=== PATIENT | female | born 1985 | race Caucasian/White ===

== ENCOUNTER 2018-06-22 07:00 | Day surgery (SDC) | payer OTHER ==
[~2018-06-22] VITALS: Ht 154.9 cm; Wt 75.5 kg
[2018-06-22] VITALS (18 sets, daily range): BP systolic 119–159; BP diastolic 68–94; PULSE 70–84; RESP 13–18; Ht 154.9 cm; Wt 75.5 kg
[~2018-06-22 07:00] MED LIST: DIPH25CA6; SEVOFLURANE 15 MIN ONE; SOD CHLORIDE 0.9% 1,000 ML IV SCH
[2018-06-22] MEDS ORDERED: EPINEPHrine 1 MG INJ ONE (07:01)
[2018-06-22] MEDS ORDERED: POLYMYXIN/BACITRACIN 1L IRRIG ONE (07:02)
--- NOTE | 2018-06-22 07:17 | HPN ---
Date/Time of Note Date/Time of Note DATE: 06/22/18 TIME: 07:17 Interval H&P Admission Note Pt. seen H&P reviewed: No system changes RONALD BOUCHER MD Jun 22, 2018 07:17
--- NOTE | 2018-06-22 07:23 | PREAC ---
Date/Time of Note Date/Time of Note DATE: 06/22/18 TIME: 07:22 Anesthesia Eval and Record Evaluation Time Pre-Procedure Interview DATE: 06/22/18 TIME: 07:22 Age 32 Sex female NPO: 8 hrs Preoperative diagnosis hypertrophy of breasts Planned procedure bilateral breast reduction Past Medical History Past Medical History: None Surgery & Anesthesia Issues No known issue Meds Anticoagulation: No Beta Sonia within 24 hr: No Reason Beta Sonia not given: Pt. not on B-Sonia Reported Medications Diphenhydramine Hcl (Benadryl) 25 Mg Cap, Q12 03/11/12 Current Medications Sodium Chloride 1,000 ml @ 0 mls/hr Q0M IV ; Start 06/22/18 at 06:00; Stop 06/22/18 at 16:00 Bupivacaine Liposome (Exparel 266 Mg/ 20 ml Vial) 266 mg INTRA-OP INFIL ; Start 06/22/18 at 07:30; Stop 06/22/18 at 12:00 Meds reviewed: Yes Allergies Coded Allergies: No Known Allergy (Verified , 03/11/12) Allergies Reviewed: Yes Labs/Studies Labs Reviewed: Reviewed by anesthesiologist test: Negative Pre-procedure Exam Airway: Adequate mouth opening, Adequate thyromental dist Mallampati: Mallampati II Teeth: Normal Lung: Normal Heart: Normal ASA Physical Status ASA physical status: 1 Emergency: E Planned Anesthetic General/MAC: LMA Planned Pain Management Parenteral pain med Pre-operative Attestations Prior to commencing anesthesia and surgery, the patient was re-evaluated, there was verification of: *The patient's identity *The results of appropriate recent lab work and preoperative vital signs *The above evaluation not changing prior to induction *Anesthetic plan, risk benefits, alternative and complications discussed with patient/family; questions answered; patient/family understands, accepts and wishes to proceed. Marine Farmer used LONNIE SHARMA MD Jun 22, 2018 07:23
[2018-06-22] MEDS ORDERED: BUPIVACAINE LIPOSOME/PF 266 MG/20 ML VIAL INFIL SCH (07:30)
[2018-06-22] MEDS ORDERED: MIDAZOLAM 1 MG/ML 2 ML INJ ONE (07:36)
[2018-06-22] MEDS ORDERED: LIDOCAINE 2% (SDV) 5 ML INJ ONE (07:36)
[2018-06-22] MEDS ORDERED: FENTAnyl 50 MCG/ML VIAL ONE ×2 (07:36→08:11)
[2018-06-22] MEDS ORDERED: PROPOFOL 20 ML ONE (07:36)
[2018-06-22] MEDS ORDERED: FAMOTIDINE 20 MG INJ ONE (07:49)
[2018-06-22] MEDS ORDERED: DEXAMETHASONE 4 MG/ML 5 ML INJ ONE (07:49)
[2018-06-22] MEDS ORDERED: CEFAZOLIN 1 GM INJ ONE (07:49)
[2018-06-22] MEDS ORDERED: ONDANSETRON 4 MG INJ ONE (07:49)
[2018-06-22] MEDS ORDERED: DIPHENHYDRAMINE 50 MG INJ IV PRN (08:00)
[2018-06-22] MEDS ORDERED: ONDANSETRON 4 MG INJ IV PRN ×2 (08:00→11:00)
[2018-06-22] MEDS ORDERED: MEPERIDINE 25 MG INJ IV PRN (08:00)
[2018-06-22] MEDS ORDERED: HYDROmorphONE 1 MG/5 ML IV SYRINGE IV PRN ×3 (08:00)
[2018-06-22] MEDS ORDERED: PROCHLORPERAZINE 10 MG INJ IV PRN (08:00)
[2018-06-22] MEDS ORDERED: FENTAnyl 50 MCG/ML VIAL IV PRN ×3 (08:00)
[2018-06-22] MEDS ORDERED: HYDROmorphONE 2 MG/ML SYG ONE (08:01)
[2018-06-22] MEDS ORDERED: OXYCODONE/ACETAMINOPHEN (5/325) TAB PO PRN (08:30)
[2018-06-22] MEDS ORDERED: hydrALAzine 20 MG INJ ONE (08:33)
[2018-06-22] MEDS ORDERED: PHENYLephrine (100 MCG/ML) 10ML SYG ONE (10:27)
--- NOTE | 2018-06-22 10:38 | NUR ---
PACU: Received patient in pacu via gurney s/p b/l breast reductions w/ ana m drain x2 asleep w/ oral airway but arousable, vss HOB @ semi wade position breathing with ease, b/l breast dressings dry & intact, denies pain at this time, called on the cell, no answer.. will continue to monitor.
--- NOTE | 2018-06-22 10:46 | PAC ---
Date/Time of Note Date/Time of Note DATE: 06/22/18 TIME: 10:45 Post-Anesthesia Notes Post-Anesthesia Note Last documented vital signs Vital Signs Date Temp Pulse Resp B/P (MAP) Pulse Ox O2 O2 Flow FiO2 Time Delivery Rate 06/22/18 98.2 10:43 06/22/18 74 18 119/83 97 Room Air 07:29 (95) Activity: WNL Respiratory function: WNL Cardiovascular function: WNL Mental status: Baseline Pain reasonably controlled: Yes Hydration appropriate: Yes Nausea/Vomiting absent: Yes Comments BP: 126/85 HR: 78 RR: 15 T: 98.2 SaO2: 100% LONNIE SHARMA MD Jun 22, 2018 10:46
--- NOTE | 2018-06-22 10:54 | OPR ---
Date/Time of Note Date/Time of Note DATE: 06/22/18 TIME: 10:49 Operative Report Free Text/Dictation Plastic Surgery Operative Report Preoperative diagnosis: macromastia and cervicalgia Postoperative diagnosis: same Procedure:bilateral breast reduction Surgeon: carter Benjamin.:YESICA Beltre Anesthesia:general EBL:50cc IV fluids:per flow sheet Findings:n/a Complications:none Dispo:home Indications for procedure:32 yo F presents for a bilateral breast reduction. Her goal is a full C to D cup breast. We discussed the risks, benefits, and alternatives of performing this procedure including the risks of bleeding, infection, wound healing problems, changes in nipple sensation, partial or total nipple necrosis, asymmetry, fat necrosis, seroma, and for revision. The patient states that she understands these risks and would like to proceed with the procedure. All questions were answered, no guarantees were given with regards the outcome of this procedure Description of procedure: Preoperatively, with the patient in the sitting position, a bilateral Hernandez pattern reduction mammoplasty with vertical limbs of 8.5 cm and pedicle width of 9cm was marked. The patient was taken to the operating room at [facility] where general anesthesia was induced. Next, she was prepped and draped in the usual sterile fashion. First, the 42 mm areola marker was placed around the each areola and total of 60cc of a solution containing 150cc NS with 0.25cc epi and 20cc exparel was injected into the planned area of de-epithelialization in each breast and the planned incision sites. The pedicles were then de-epithelialized with the 10 blade and scissors. Attention was then turned to the right breast where the incision around the pedicle was deepened with the peak plasma blade. Next, the remainder of the incisions were made with the peak plasma blade, and a medial flap was developed. A lateral flap was then developed with the plasma blade as well, and then the medial and lateral dissections were joined superiorly. The incisions around the pedicle were deepened to the level of the chest wall, taking special care to leave a fascial layer over the chest wall to preserve sensation, and then the tissue intervening between the flaps and pedicle was excised. The breast was irrigated with antibiotic irrigation, hemostasis was achieved with the bipolar cautery, and then the breast was towel clipped closed. Attention was then turned to the other breast where a similar procedure was carried out. The pedicle was incised, and then medial and lateral flaps were elevated, and then the dissections were joined superiorly. The tissue between the pedicle and the flaps was excised taking special care to leave a layer of fascia over the chest wall. The breast was irrigated with antibiotic irrigation, hemostasis was achieved with the bipolar cautery, and then the breast was towel clipped closed. The patient was sat up on the operating room table, symmetry was good, and therefore the patient was sat back down. A total of 60 mL of a dilute Exparel solution were then injected into the breasts. A #15 Familia drain was inserted into each breast through a stab incision laterally and was secured with 2-0 nylon suture. Next, the incisions were closed with a deep layer of 3-0 Vicryl sutures, 4-0 Monocryl suture, and then steri strips. The nipples were pink and viable at the completion of the case. The patient tolerated the procedure well, there were no complications, follow up information and wound care instructions were given. 910g were removed from the right and 715g were removed from the left. Due to the size of the breast and the complexity of the procedure, it was necessary to have a skilled production administrative assistant present and assisting throughout the entire procedure so that forehands could work simultaneously. YESICA Beltre, assisted with this procedure Preoperative Diagnosis macromastia and cervicalgia Postoperative Diagnosis same Operation/Procedure Performed bilateral breast reduction Surgeon see signature line Vehicle Operator YESICA Beltre Anesthesia Type: general Estimated Blood Loss: 50 - 100 ml's Transfusion none Specimen to path Grafts/Implants none Tubes/Drains bilateral breast drains Complications none Procedure Description see dictation RONALD BOUCHER MD Jun 22, 2018 10:54
[2018-06-22] MEDS ORDERED: morphine 2 MG INJ IV PRN (11:00)
[2018-06-22] MEDS ORDERED: HYDROCODONE/APAP (5/325) TAB PO PRN (11:00)
--- NOTE | 2018-06-22 12:06 | NUR ---
PACU: Transferred patient to [facility] via [facility] AAOx4 vss HOB @ semi wade position breathing with ease, b/l breast dressings dry & intact w/ cm wrap around chest ZACK draining & patent, pain tolerable given IV pain medications & zofran for anti- emetic. Notified to meet patient in [facility]. Repost given to ANNIE Collins
--- NOTE | 2018-06-22 13:45 | NUR ---
TEACHINGS DONE ON CARE OF ZACK DRAINS. DISCHARGE TEACHINGS DONE. SPOUSE AT BEDSIDE.
== END 2018-06-22 13:55 | disposition home or self-care (01) ==
LOC: SDS 07:00
PROVIDERS: ATTEND Surgery Plastic and Reconstructive Surgery
DX: N62 Hypertrophy of breast (principal); D24.2 Benign neoplasm of left breast; D24.1 Benign neoplasm of right breast; M54.2 Cervicalgia
CPT/HCPCS: 19318; 88305; C9290; J0171; J0360; J0690; J1100; J1170; J2250; J2370; J2405; J3010; Z7512; Z7610